=== PATIENT | male | born 1990 | race Two or more races ===

== ENCOUNTER 2021-09-16 14:17 | Emergency (ER) | payer SELFPAY ==
[2021-09-16] MEDS ORDERED: Metoclopramide 10 MG/2 ML SDV IVPUSH ONE (14:34)
[2021-09-16] MEDS ORDERED: Sodium Chloride 0.9% 1,000 ML IV ONE ×3 (14:34→21:00)
[2021-09-16] MEDS ORDERED: Thiamine 100 MG Tab PO ONE (14:34)
[2021-09-16] MEDS ORDERED: LORazepam 2 MG/ML SDV IVPUSH ONE ×2 (14:34→15:34)
[2021-09-16] MEDS ORDERED: Sodium Chloride 0.9% 10 ML Syringe FLUSH PRN (14:34)
[2021-09-16] MEDS ORDERED: Folic Acid 1 MG Tab PO ONE (14:34)
[2021-09-16 15:26] LABS: CORONAVIRUS COVID-19 NAA NEGATIVE (NEGATIVE)
[2021-09-16] MEDS ORDERED: Potassium Chloride 20 MEQ Tab.ER PO ONE (16:20)
[2021-09-16] MEDS ORDERED: Magnesium Sulfate/Water 2 GM in Premix Bag 1 BAG IV ONE (16:22)
[2021-09-16] MEDS: Potassium Chloride 10 MEQ in Premix Bag 1 BAG IV SCH ×4 (18:21→22:15)
[2021-09-16] MEDS ORDERED: Ondansetron 4 MG/2 ML SDV IVPUSH PRN (18:21)
[2021-09-16] MEDS ORDERED: LORazepam 2 MG/ML SDV IVPUSH PRN (18:25)
[2021-09-16] MEDS ORDERED: LORazepam 2 MG/ML SDV IVPUSH SCH (18:30)
[2021-09-16] MEDS ORDERED: LORazepam 1 MG Tab PO ONE (20:27)
[2021-09-17] MEDS ORDERED: LORazepam 1 MG Tab PO ONE ×3 (00:29→09:03)
== END 2021-09-17 09:41 | disposition home or self-care (01) ==
LOC: EDBD 14:17 → JD.ED 14:17
DX: F10.230 Alcohol dependence with withdrawal, uncomplicated (principal); Z88.0 Allergy status to penicillin; Y90.0 Blood alcohol level of less than 20 mg/100 ml; Z20.822 Contact with and (suspected) exposure to COVID-19
CPT/HCPCS: 0241U; 36415; 80053; 80306; 80307; 83735; 85025; 85610; 96365; 96366; 96367; 96375; 96376; 99285; A9270; J2060; J2765; J3475; J3480; J7030; 99283

== ENCOUNTER 2021-11-11 11:24 | Emergency (ER) | payer SELFPAY ==
[2021-11-11] MEDS ORDERED: Sodium Chloride 0.9% 10 ML Syringe FLUSH PRN (12:17)
[2021-11-11] MEDS ORDERED: Potassium Chloride 20 MEQ Tab.ER PO ONE (12:52)
[2021-11-11] MEDS ORDERED: Dextrose 5%-0.9% NaCl 1,000 ML IV SCH (13:00)
[2021-11-11 13:14] LABS: CORONAVIRUS COVID-19 NAA NEGATIVE (NEGATIVE)
== END 2021-11-11 16:20 | disposition home or self-care (01) ==
LOC: JD.ED 11:24
DX: F10.129 Alcohol abuse with intoxication, unspecified (principal); Z88.0 Allergy status to penicillin; Z72.0 Tobacco use; Z20.822 Contact with and (suspected) exposure to COVID-19; Y90.5 Blood alcohol level of 100-119 mg/100 ml
CPT/HCPCS: 0240U; 36415; 71045; 80053; 80306; 80307; 81001; 82009; 82947; 83735; 84443; 85025; 86140; 99283; A9270; J7042; 93010; 99285

== ENCOUNTER 2021-11-26 09:13 | Emergency (ER) | payer SELFPAY ==
[2021-11-26] MEDS ORDERED: Sodium Chloride 0.9% 1,000 ML IV ONE (09:30)
[2021-11-26] MEDS ORDERED: Ondansetron 4 MG/2 ML SDV IVPUSH ONE (09:35)
[2021-11-26] MEDS ORDERED: LORazepam 2 MG/ML SDV IVPUSH ONE ×2 (09:35→10:19)
[2021-11-26] MEDS ORDERED: Magnesium Sulfate/Water 2 GM in Premix Bag 1 BAG IV ONE (10:29)
== END 2021-11-26 15:25 | disposition home or self-care (01) ==
LOC: JD.ED 09:13
DX: F10.230 Alcohol dependence with withdrawal, uncomplicated (principal); Z88.0 Allergy status to penicillin; Z72.0 Tobacco use; Y90.5 Blood alcohol level of 100-119 mg/100 ml
CPT/HCPCS: 36415; 80053; 80306; 80307; 82009; 82803; 83690; 83735; 85025; 96365; 96366; 96375; 96376; 99285; J2060; J2405; J3475; J7030; 99284

== ENCOUNTER 2021-11-30 12:46 | Emergency (ER) | payer SELFPAY ==
[2021-11-30] MEDS ORDERED: Sodium Chloride 0.9% 10 ML Syringe FLUSH PRN (13:14)
[2021-11-30] MEDS ORDERED: Sodium Chloride 0.9% 1,000 ML IV ONE ×3 (13:26→16:39)
[2021-11-30] MEDS ORDERED: Potassium Chloride 20 MEQ Tab.ER PO ONE (14:40)
== END 2021-11-30 19:37 | disposition other institution (70) ==
LOC: JD.ED 12:46
DX: F10.10 Alcohol abuse, uncomplicated (principal); Z88.0 Allergy status to penicillin; Z72.0 Tobacco use; Y90.2 Blood alcohol level of 40-59 mg/100 ml
CPT/HCPCS: 36415; 80053; 80306; 80307; 83735; 85025; 99282; A9270; J7030; 99283; J3490

== ENCOUNTER 2021-12-07 21:09 | Emergency (ER) | payer SELFPAY | END 2021-12-07 22:43 | disposition home or self-care (01) | LOC: SUPCPDRO 21:09 → JD.ED 21:09 | DX: R03.0 Elevated blood-pressure reading, without diagnosis of hypertension (principal); Z88.0 Allergy status to penicillin; Z72.0 Tobacco use | CPT/HCPCS: 99283; 99284 ==

== ENCOUNTER 2021-12-30 12:21 | Emergency (ER) | payer SELFPAY ==
[2021-12-30] MEDS ORDERED: Metoclopramide 10 MG/2 ML SDV IVPUSH ONE (12:39)
[2021-12-30] MEDS ORDERED: Sodium Chloride 0.9% 1,000 ML IV ONE ×3 (12:39→16:32)
[2021-12-30] MEDS ORDERED: Folic Acid 1 MG Tab PO ONE (12:39)
[2021-12-30] MEDS ORDERED: Sodium Chloride 0.9% 10 ML Syringe FLUSH PRN (12:39)
[2021-12-30] MEDS ORDERED: LORazepam 2 MG/ML SDV IVPUSH ONE ×2 (12:39→21:10)
[2021-12-30] MEDS ORDERED: Thiamine 100 MG Tab PO ONE (12:39)
[2021-12-30] MEDS ORDERED: Lactated Ringers 1,000 ML IV ONE (18:11)
[2021-12-30] MEDS ORDERED: Ondansetron 4 MG/2 ML SDV IVPUSH ONE (21:10)
== END 2021-12-30 21:35 | disposition home or self-care (01) ==
LOC: JD.ED 12:21
DX: F10.129 Alcohol abuse with intoxication, unspecified (principal); Z88.0 Allergy status to penicillin; Y90.2 Blood alcohol level of 40-59 mg/100 ml
CPT/HCPCS: 36415; 70450; 80053; 80306; 80307; 82947; 83735; 85025; 85610; 96374; 96375; 96376; 99284; A9270; J2060; J2405; J2765; J3490; J7030; J7120